=== PATIENT | male | born 1960 | race Caucasian/White ===

== ENCOUNTER 2017-03-27 06:05 | Day surgery (SDC) | payer MEDICAID ==
[2017-03-26 12:12] LABS: BASOPHILS 0.3 % (0-2); EOSINOPHILS 3.2 % (0-7); HEMATOCRIT 41.4 % (42.0-54.0); HEMOGLOBIN 14.4 g/dL (13.5-17.5); IMMATURE GRANULOCYTES 0.1 % (0-5); LYMPHOCYTES 23.1 % (15-50); MCH 30.1 pg (26.0-34.0); MCHC 34.8 g/dL (31.0-37.0); MCV 86.6 fL (80.0-100.0); MEAN PLATELET VOLUME 9.9 fL (7.4-10.4); NEUTROPHILS 66.3 % (40-80); PLATELET COUNT 206 10x3/uL (130-400); RBC 4.78 10x6/uL (4.20-6.10); RDW 13.6 % (11.5-14.5); WBC 7.5 10x3/uL (4.8-10.8)
[2017-03-26 12:22] LABS: CALCIUM 9.3 mg/dL (8.5-10.1); CARBON DIOXIDE 24.2 mmol/L (21.0-32.0); CREATININE - SERUM 1.5 mg/dL (0.6-1.3); POTASSIUM - SERUM 4.2 mmol/L (3.5-5.1)
[~2017-03-27] VITALS: Ht 182.9 cm; Wt 96.4 kg
[~2017-03-27 06:05] MED LIST: BETAPACE 80 MG80 MG PO; FUROSEMIDE20 MG PO; HYDROCODONE-APA1 TAB PO; KLOR-CON M2020 MEQ PO; OMEPRAZOLE20 M1 PO; ROXICODONE15 MG PO; ZYLOPRIM300 MG PO
[2017-03-27] MEDS ORDERED: ZANAFLEX4 MG PO (06:35)
[2017-03-27 06:43] VITALS: BP 131/75; BMI 28.8
--- NOTE | 2017-03-27 10:29 | NUR ---
DR LANDEROS NOTIFIED OF HYPERTENSION. REPEAT DOSE OF HYDRALAZINE GIVEN. MEDS FOR PAIN AND SHIVERING ALSO GIVEN. BP IS NOW ACCEPTABLE. WILL TRANSFER TO OUTPT DEPT.
--- NOTE | 2017-03-27 12:03 | NUR ---
C/O PAIN AND "CRAMPING" TO ABDOMEN AND RECTUM. MD AWARE, ORDER FOR LAND SURVEYING PARTY CHIEF. SPOKE WITH RAFA CONNOLLYHTML WEB DEVELOPER CONCERNING ORDER FOR LAND SURVEYING PARTY CHIEF AND NO PUMP/LEONARDO. WILL HAVE SET UP PER MED/ARABIC PROFESSOR. SPOKE WITH PHARMACY R/T LAND SURVEYING PARTY CHIEF. WILL CONTINUE TO MONITOR.
--- NOTE | 2017-03-27 12:16 | NUR ---
1215--PT UP TO VOID WITHOUT DIFFICULTY. HGRAVES RN
[2017-03-27 16:14] VITALS: BP 125/86
[2017-03-27 16:50] VITALS: BP 125/86; Ht 182.9 cm; Wt 96.4 kg
--- NOTE | 2017-03-27 19:30 | NUR ---
PATIENT RESTING IN BED AND DENIES NEEDS AT THIS TIME. BED IN LOWEST POSITION AND CALL LIGHT WITHIN REACH. ENCOURAGED THE PATIENT TO CALL IF HE HAS NEEDS.
[2017-03-27 20:00] VITALS: BP 146/71
[2017-03-28 04:00] VITALS: BP 130/72
--- NOTE | 2017-03-28 07:46 | NUR ---
AWAKE AND ALERT. ORIENTED X3. NO C/O PAIN AT THIS TIME. LUNGS ARE CLEAR BILATERALLY, NO COUGH NOTED. SKIN IS INTACT WHTOUT REDNESS. IV TO RIGHT FOREARM IS PATENT WITHOUT REDNESS AT INSERTION SITE. DENIES NEEDS.
[2017-03-28 08:18] VITALS: BP 170/77
--- NOTE | 2017-03-28 08:30 | NUR ---
DRESSING TO BUTTOCK CHANGED R/T SOILED. DENIES NEEDS.
--- NOTE | 2017-03-28 09:56 | NUR ---
CM met with patient at the request of Dr Domingo to assess discharge planning needs. Patient lives home alone independently but has many family and friends. Patient does not have and services set up at this time nor does he use any DME. Cathryn Angelo the patients friend will be driving him home today. Patient does not think that he will need home health at this time. I explained to him in great length about Akanksha Garibay CM for [employer] on how she will be following him and in the future and she can set anything that may need to be set up. Patient requested information on personal care and home care pamphlets given along with Akanksha Garibay card. CM will continue to follow and assist as needed.
--- NOTE | 2017-03-28 10:30 | NUR ---
DISCHARGED TO HOME WITH FAMILY AMBULATORY. DISCHARGE INSTRUCTIONS GIVEN BOTH VERBALLY AND WRITTEN. ALL QUESTIONS ANSWERED. PATIENT VERBALIZED UNDERSTANDING OF SAME. NO NEW PRESCRIPTIONS NEEDED. IV TO RIGHT FOREARM D/C WITH CATHETER INTACT.
[2017-03-30 19:08] LABS: HIV-1 RNA BY PCR <20 (())
== END 2017-03-28 10:34 | disposition home or self-care (01) ==
LOC: D.OPS 06:05 → D.MS 06:05 → D.OPS 08:00 → D.PAN 08:00 → D.MS 15:18 → D.OPS 03-28 10:34
PROVIDERS: Anesthesiology; Internal Medicine Hematology & Oncology; Surgery
DX: C20 Malignant neoplasm of rectum (principal); D12.0 Benign neoplasm of cecum; K63.5 Polyp of colon; I48.91 Unspecified atrial fibrillation; M47.892 Other spondylosis, cervical region; M10.9 Gout, unspecified; I50.9 Heart failure, unspecified; K21.9 Gastro-esophageal reflux disease without esophagitis; Z87.891 Personal history of nicotine dependence; Z79.891 Long term (current) use of opiate analgesic; Z79.899 Other long term (current) drug therapy

== ENCOUNTER 2017-04-22 05:09 | Day surgery (SDC) | payer MEDICAID ==
[2017-04-19 16:00] LABS: BASOPHILS 0.2 % (0-2); EOSINOPHILS 3.8 % (0-7); HEMATOCRIT 34.1 % (42.0-54.0); LYMPHOCYTES 26.2 % (15-50); MCH 30.1 pg (26.0-34.0); MCHC 35.2 g/dL (31.0-37.0); MCV 85.5 fL (80.0-100.0); MEAN PLATELET VOLUME 10.3 fL (7.4-10.4); MONOCYTES 9.6 % (2-11); NEUTROPHILS 60.2 % (40-80); PLATELET COUNT 172 10x3/uL (130-400); RBC 3.99 10x6/uL (4.20-6.10); RDW 13.6 % (11.5-14.5); WBC 5.8 10x3/uL (4.8-10.8)
[2017-04-19 16:13] LABS: ANION GAP 13.2 mmol/L (8-16); CALCIUM 8.1 mg/dL (8.5-10.1); CARBON DIOXIDE 27.1 mmol/L (21.0-32.0); CREATININE - SERUM 1.9 mg/dL (0.6-1.3); POTASSIUM - SERUM 4.3 mmol/L (3.5-5.1)
[2017-04-19 16:14] LABS: INR 1.02 (0.85-1.17); PROTIME 13.3 SECONDS (11.6-15.0)
[2017-04-19 16:15] LABS: APTT 29.9 SECONDS (22.8-39.4)
[~2017-04-22] VITALS: Ht 182.9 cm; Wt 89.4 kg
[~2017-04-22 05:09] MED LIST changes: +OXYCODONE HCL10 MG PO; +OXYCONTIN30 MG PO; -ROXICODONE15 MG PO; +ZANAFLEX4 MG PO
[2017-04-22 06:48] VITALS: BP 146/71; Ht 182.9 cm; Wt 89.4 kg
--- NOTE | 2017-04-22 09:41 | NUR ---
CONSULTED ANESTHESIA REGARDING ELEVATED BLOOD PRESSURE. GIVEN ORDERS TO GIVE HYDRALAZINE 5M EVERY FIVE UP TO 20MG PER VERBAL ORDER DR CARTER. WILL CONTINUE TO MONITOR.
--- NOTE | 2017-04-22 11:04 | NUR ---
1100 DR. LUZ ROUNDS ON THIS PT.
--- NOTE | 2017-04-22 14:59 | NUR ---
114 DC INSTS REVIEWED, PT TO GO TO DR. RAMOS' OFFICE FOR CHEMO. PORT REMAINS ACCESSED FROM OR. DRESSING CDI. RELEASED IN WC.
--- NOTE | 2017-04-23 09:38 | OP ---
PATIENT NAME: CHERELLE MENDEZ MEDICAL RECORD: [id number] :58 LOCATION:D.[facility] ADMISSION DATE: SURGEON: CHERELLE LUZ MD DATE OF OPERATION: 04/22/2017 SURGEON: Cherelle Luz MD. PREOPERATIVE DIAGNOSIS: Rectal cancer. POSTOPERATIVE DIAGNOSIS: Rectal cancer. PROCEDURE PERFORMED: 1. Insertion of left subclavian tunneled PowerPort. 2. Immediate interpretation of fluoroscopy. ANESTHESIA: General. COMPLICATIONS: None. SPECIMENS: None. Case was clean. ESTIMATED BLOOD LOSS: 5 cc. OPERATIVE COURSE: After consent was obtained, the patient was taken to the operating room and placed in the supine position on the operating table. Next, general anesthesia was given via endotracheal intubation after a timeout was performed that confirmed the correct patient and procedure. The left chest was then prepped and draped in typical sterile fashion. A 30 cc of local anesthetic were injected in the left chest wall. The left subclavian vein was cannulated on the first pass. Under fluoroscopy, the guidewire was advanced to the needle and advanced to the atriocaval junction. The needle was removed. The dilator and breakaway sheath were then passed over the wire under fluoroscopic guidance. Next, a skin incision was made with a 15-blade scalpel. Dissection continued to the level of the pectoralis fascia. A subcutaneous pocket was created along the pectoralis fascia. The tunneling device was then used to tunnel the catheter from the skin incision site to the needle stick site. The wire and dilator were removed and under fluoroscopy, the catheter was advanced to the breakaway sheath to the atriocaval junction and the breakaway sheath was removed. The catheter was then secured to the port and the port was sutured to the pectoralis fascia using interrupted 2-0 Prolene suture. The port was accessed, blood was aspirated, it was then flushed with 5000 units of heparin and 30 cc of saline. The pocket was irrigated and suctioned. The subcutaneous tissue was closed with 3-0 Vicryl suture. The skin was closed with 4-0 Monocryl, Mastisol and Steri-Strips. It was then covered. The port was then accessed, again blood was aspirated. It was flushed with normal saline. Telfa and sterile Tegaderm dressings were placed over the port in the incision. At the end of the case, all needle and instrument counts were correct. No complications occurred. The patient was extubated and transferred to the PACU in stable condition. TRANSINT:[id number] Voice Confirmation ID: [id number] DOCUMENT ID: [id number] OPERATIVE REPORT [id number] CHERELLE MENDEZ JAMES J MD at 0938 CC: [id number] DICTATION DATE: 04/22/17929 COURT SECURITY OFFICER: 04/22/17 1353 [facility] 04/22/[address] [address]
== END 2017-04-22 11:42 | disposition home or self-care (01) ==
LOC: D.OPS 05:09 → D.PAN 07:30 → D.OPS 07:30 → D.PAN 08:30 → D.OPS 11:42
PROVIDERS: Anesthesiology
DX: C20 Malignant neoplasm of rectum (principal); Z01.812 Encounter for preprocedural laboratory examination

== ENCOUNTER 2017-06-01 11:23 | Inpatient (IN) | payer MEDICAID ==
[~2017-06-01] VITALS: Ht 182.9 cm; Wt 85.5 kg
--- NOTE | ~2017-06-01 | CN ---
PATIENT NAME:CHERELLE MENDEZ MEDICAL RECORD: [id number] : 58 LOCATION:[facility] ADMIT DATE: 06/01/17 ACCOUNT: [id number] CONSULTING PHYSICIAN: MARIO YOUNGBLOOD MD REFERRING PHYSICIAN: JAMEY SOLO DO DATE OF CONSULTATION: 06/01/2017 CONSULTATION NOTE ADDENDUM CHIEF COMPLAINT: Miserable. HISTORY OF PRESENT ILLNESS: The patient was admitted with an ileus or a small-bowel obstruction. I favor probable ileus. His surgeon is Dr. EVELIN Domingo. The patient has rectal cancer. He is undergoing radiation therapy for this and he has some burned areas involving the lower abdomen and perirectal area as well as the size. He has had some ointment he has been using at home. We will have that ointment here with this; however, he has used some Emla cream in the past and we will order that for him. Additionally, he is on Chloraseptic spray. I have adjusted the nasogastric tube tamer as it was up in the left nostril. He appears more comfortable now that these adjustments have been made. It is very likely that he is having a medication reaction to a medicine that is used for narcotic-induced constipation. Symptoms are improved. The patient frankly is fairly miserable. He is tender in the lower abdomen, but this is from the radiation casey. Symptoms are of moderate intensity. Palpation aggravates. Nothing alleviates. This is a consultation note addendum. For the typed portion of the consultation note, please see the chart. This will include the past medical and surgical history, current medications, allergies, family history as well as social history. REVIEW OF SYSTEMS: Positive for nausea, positive for abdominal pain, positive for rash/burn. Review of systems is negative other than as is described above. PHYSICAL EXAMINATION: GENERAL: The patient appears acutely ill. Also appears chronically ill. VITAL SIGNS: Reviewed. EARS: External ears appear normal. EYES: Extraocular movements are intact. NECK: Trachea is midline. CHEST: No intercostal retractions. PULMONARY: Nonlabored, no stridor. ABDOMEN: Tender as described above. INTEGUMENT: Burn/rash as described above. PSYCHIATRIC: Anxious affect. NEUROLOGIC: Answers questions appropriately, moves all extremities well. BACK: No thoracic kyphosis. LYMPHATIC: No lymphangitic streaking of the exposed extremities. IMPRESSION: Probable ileus. PLAN: Nasogastric tube suction. We will remove the nasogastric tube when he has return of bowel function. I will review his CT images. CONSULT REPORT [id number] CHERELLE MENDEZ TRANSINT:[id number] Voice Confirmation ID: [id number] DOCUMENT ID: [id number] MARIO YOUNGBLOOD MD CC: [id number] DICTATION DATE: 06/01/171819 EMERGENCY PREPAREDNESS MANAGER: 06/01/171952 ADM IN [place] [id number] [place] [id number]
--- NOTE | ~2017-06-01 | HP ---
PATIENT: CHERELLE BRANCH MEDICAL RECORD: [id number] ACCOUNT: [id number] LOCATION:[facility] : 58 ADMISSION DATE: 06/01/17 HISTORY AND PHYSICAL EXAMINATION HISTORY OF PRESENT ILLNESS: Mr. Branch is a 56-year-old white male with known rectal cancer followed by Dr. Cohen, Dr. Dailey and Dr. Domingo, who presents with sudden onset of abdominal pain, nausea and vomiting earlier today. He took his last chemo treatment yesterday, has still a little bit of radiation left, saw Dr. Dailey yesterday, who gave him Movantik due to some opioid-induced constipation. PAST MEDICAL HISTORY: Significant for known rectal cancer, congestive heart failure, atrial fibrillation, edema, GERD. PAST SURGICAL HISTORY: Previous surgeries include tonsillectomy, adenoidectomy and neck surgery. ALLERGIES: None known. HOME MEDICATIONS: Include sotalol 80 mg a day, oxycodone q. 12 immediate release, potassium 20 mEq daily, omeprazole 20 mg a day, Zyloprim 300 mg a day. FAMILY HISTORY: Noncontributory. SOCIAL HISTORY: The patient was a smoker and a drinker, but has quit both within the last few years. REVIEW OF SYSTEMS: He complains of abdominal pain, which is severe nausea and vomiting, has had loose stools for most of the day. No visible blood. No chest pain. No shortness of breath. PHYSICAL EXAMINATION: HEENT: Head is normocephalic, sclerae nonicteric, NG tube in place. NECK: Soft and supple. HEART: Regular. LUNGS: Clear. ABDOMEN: Soft. Diminished bowel sounds. No edema. IMPRESSION: 1. Small bowel versus ileus. 2. Rectal cancer. 3. History of atrial fibrillation, currently in sinus. PLAN: Admit, NG tube, bowel rest, IV fluids. See orders for plan. We will also consult Dr. Cohen and consult general surgery. TRANSINT:[id number] Voice Confirmation ID: [id number] DOCUMENT ID: [id number] HISTORY AND PHYSICAL [id number] CHERELLE BRANCH [place] CC: [id number] DICTATION DATE: 06/01/17 1721 MEDICAL GRADE SHOEMAKER: 06/01/17 1831 ADM IN [place] [id number] [place] [address]
[2017-06-01 12:28] LABS: BASOPHILS 0.3 % (0-2); EOSINOPHILS 3.2 % (0-7); HEMATOCRIT 27.2 % (42.0-54.0); HEMOGLOBIN 9.9 g/dL (13.5-17.5); IMMATURE GRANULOCYTES 0.3 % (0-5); MCH 31.5 pg (26.0-34.0); MCHC 36.4 g/dL (31.0-37.0); MCV 86.6 fL (80.0-100.0); MEAN PLATELET VOLUME 9.5 fL (7.4-10.4); MONOCYTES 5.1 % (2-11); NEUTROPHILS 85.1 % (40-80); RBC 3.14 10x6/uL (4.20-6.10); RDW 16.6 % (11.5-14.5); WBC 3.2 10x3/uL (4.8-10.8)
[2017-06-01 12:29] LABS: PLATELET COUNT 124 10x3/uL (130-400)
[2017-06-01 12:37] LABS: APPEARANCE CLEAR (CLEAR); COLOR YELLOW (YELLOW); LEUKOCYTE ESTERASE TRACE (NEGATIVE); NITRITE NEGATIVE (NEGATIVE); PROTEIN TRACE mg/dL (NEGATIVE); SPECIFIC GRAVITY 1.005 (1.005-1.020)
[2017-06-01 12:38] LABS: BILIRUBIN NEGATIVE (NEGATIVE); GLUCOSE NEGATIVE (NEGATIVE); KETONE NEGATIVE (NEGATIVE); UROBILINOGEN NORMAL (NORMAL)
[2017-06-01 12:41] LABS: EPITHELIAL CELLS 0-5 /hpf (0-5); RED CELLS - URINE 0-5 /hpf (0-5); WHITE CELLS - URINE 0-5 /hpf (0-5)
[2017-06-01 12:42] LABS: BACTERIA NONE SEEN /hpf (NONE SEEN)
[2017-06-01 12:43] LABS: ALBUMIN 3.2 g/dL (3.4-5.0); ALKALINE PHOSPHATASE 116 U/L (46-116); ALT (SGPT) 29 U/L (10-68); BILIRUBIN - TOTAL 1.08 mg/dL (0.2-1.3); CALC OSMOLALITY 276 mosm/kg (275-300); CALCIUM 8.6 mg/dL (8.5-10.1); CARBON DIOXIDE 24.1 mmol/L (21.0-32.0); CHLORIDE - SERUM 104 mmol/L (98-107); CREATININE - SERUM 1.1 mg/dL (0.6-1.3); GLUCOSE 125 mg/dL (74-106); POTASSIUM - SERUM 3.7 mmol/L (3.5-5.1); PROTEIN - SERUM 6.7 g/dL (6.4-8.2); SODIUM 137 mmol/L (136-145); UREA NITROGEN 19 mg/dL (7-18); eGFR NON AFRICAN AMERICAN 73 mL/min (90-120)
[2017-06-01 12:43] LABS: SPERMATOZOA PRESENT /hpf (NONE SEEN)
[2017-06-01 12:53] LABS: CHOL - HDL RATIO 5.7 ratio (2.3-4.9); CHOLESTEROL, TOTAL 215 mg/dL (0-200); CKMB 0.1 U/L (0.0-3.6); CREATINE KINASE 37 UL (21-232); HDL CHOLESTEROL 38 mg/dL (32-96); LDL CHOLESTEROL 142 mg/dL (0-100); LDL-HDL RATIO 3.7 ratio (1.5-3.5); TRIGLYCERIDE 178 mg/dL (30-200)
[2017-06-01 12:56] LABS: TROPONIN-I < 0.017 ng/mL (0.000-0.060)
[2017-06-01 13:14] LABS: AMYLASE - SERUM 78 U/L (25-115); LIPASE 77 U/L (73-393)
[2017-06-01 16:51] VITALS: BP 180/88
[2017-06-01] MEDS ORDERED: FLOMAX0.4 MG PO (17:51)
[2017-06-01] MEDS ORDERED: PHENERGAN25 M1 PO (17:52)
[2017-06-01] MEDS ORDERED: EMLA CREAM 30 G30 G1 TOPICAL (17:53)
[2017-06-01] MEDS ORDERED: ZOFRAN4 MG PO (17:53)
[2017-06-01] MEDS ORDERED: [UNRECOGNIZED DRUG - OTHER] (18:06)
[2017-06-01 18:41] VITALS: Ht 182.9 cm; Wt 85.5 kg
--- NOTE | 2017-06-01 18:51 | NUR ---
PATIENT IN BED WITH IV INTACT. NO COMPLAINTS OR SIGNS OF DISTRESS AT THIS TIME. NGT LIWS. CALL LIGHT WITHIN REACH.
[2017-06-01 19:23] VITALS: BP 181/87
[2017-06-02] VITALS: BP 160/80
--- NOTE | 2017-06-02 02:55 | NUR ---
PT SLEEPING. RESP EASY, UNLABORED. NO DISTRESS NOTED. CONTINUE MODERN DANCER'S PLAN OF CARE.
[2017-06-02 04:00] VITALS: BP 171/78
[2017-06-02 07:01] LABS: HEMATOCRIT 23.9 % (42.0-54.0); HEMOGLOBIN 8.4 g/dL (13.5-17.5); MCH 30.9 pg (26.0-34.0); MCHC 35.1 g/dL (31.0-37.0); MCV 87.9 fL (80.0-100.0); MEAN PLATELET VOLUME 9.1 fL (7.4-10.4); RBC 2.72 10x6/uL (4.20-6.10); RDW 16.5 % (11.5-14.5)
[2017-06-02 07:03] LABS: ALBUMIN 2.8 g/dL (3.4-5.0); ALKALINE PHOSPHATASE 104 U/L (46-116); ALT (SGPT) 22 U/L (10-68); CALC OSMOLALITY 275 mosm/kg (275-300); CARBON DIOXIDE 27.7 mmol/L (21.0-32.0); CHLORIDE - SERUM 106 mmol/L (98-107); GLUCOSE 92 mg/dL (74-106); MAGNESIUM - SERUM 1.2 mg/dL (1.8-2.4); PLATELET COUNT 91 10x3/uL (130-400); POTASSIUM - SERUM 3.3 mmol/L (3.5-5.1); PROTEIN - SERUM 6.2 g/dL (6.4-8.2); SODIUM 138 mmol/L (136-145); UREA NITROGEN 12 mg/dL (7-18); WBC 1.8 10x3/uL (4.8-10.8); eGFR NON AFRICAN AMERICAN 82 mL/min (90-120)
[2017-06-02 07:28] LABS: EOSINOPHILS 5 % (0-7); LYMPHOCYTES 13 % (15-50); MONOCYTES 8 % (2-11); NEUTROPHILS 72 % (40-80); PLATELET ESTIMATE DECREASED
--- NOTE | 2017-06-02 07:50 | NUR ---
A&O, DENIES NEEDS, BED LOWEST POSITION, CALL LIGHT IN REACH, WILL CONTINUE TO MONITOR
[2017-06-02 10:11] VITALS: BP 195/97
[2017-06-02 12:43] VITALS: BP 186/92
--- NOTE | 2017-06-02 14:30 | NUR ---
NGT CLAMPED, CLEAR LIQUIDS GIVEN, TOLERATING WELL, WILL CONTINUE TO MONITOR
--- NOTE | 2017-06-02 19:25 | NUR ---
RECIEVED SHIFT REPORT. PT IS LYING IN BED. ALERT AND ORIENTED AND ABLE TO VERBALIZE NEEDS. IV IS PATENT AND FLUIDS ARE RUNNING PER ORDER. NGT TO LEFT NARE PATENT AND CLAMPED AT THIS TIME. PT IS AMBULATORY BUT WAS INSTRUCTED TO CALL FOR ANY ASSISTANCE NEEDED. PT STATES PAIN IS 6/10 WITH FLOOR WORKER TRANSFER BAY PUMP. NO NEEDS ARE VERBALIZED AT THIS TIME. WILL CONTINUE TO MONITOR. SIDE RAILS ARE UP X 2. BED IS IN LOWEST POSITION. CALL LIGHT IS WITHIN REACH.
[2017-06-02 20:00] VITALS: BP 146/47
--- NOTE | 2017-06-02 21:30 | NUR ---
SHIFT ASSESSMENT COMPLETED. NGT PULLED BY DR YOUNGBLOOD AT THIS TIME. NO NEEDS ARE VOICED. WILL MONITOR. SIDE RAILS X 2. BED LOW. CALL LIGHT IN REACH.
[2017-06-03] VITALS: BP 144/71
[2017-06-03 04:00] VITALS: BP 152/60
[2017-06-03 06:07] LABS: CALC OSMOLALITY 276 mosm/kg (275-300); CALCIUM 7.7 mg/dL (8.5-10.1); CARBON DIOXIDE 24.8 mmol/L (21.0-32.0); CHLORIDE - SERUM 106 mmol/L (98-107); CREATININE - SERUM 0.9 mg/dL (0.6-1.3); GLUCOSE 85 mg/dL (74-106); POTASSIUM - SERUM 3.2 mmol/L (3.5-5.1); SODIUM 140 mmol/L (136-145); UREA NITROGEN 9 mg/dL (7-18); eGFR NON AFRICAN AMERICAN > 90 mL/min (90-120)
--- NOTE | 2017-06-03 07:02 | NUR ---
REPORT RECIEVED, ASSUMED CARE OF PT. WATCHING TV, NO COMPLAINTS AT THIS TIME. BED IN LOWEST POSITION, SIDE RAILS UP X 2, CALL LIGHT WITHIN REACH.
[2017-06-03 08:43] VITALS: BP 165/74
[2017-06-03 09:11] LABS: BASOPHILS 0.2 % (0-2); EOSINOPHILS 3.4 % (0-7); HEMOGLOBIN 8.2 g/dL (13.5-17.5); IMMATURE GRANULOCYTES 1.1 % (0-5); LYMPHOCYTES 5.1 % (15-50); MCH 31.5 pg (26.0-34.0); MCHC 35.7 g/dL (31.0-37.0); MCV 88.5 fL (80.0-100.0); MEAN PLATELET VOLUME 9.7 fL (7.4-10.4); MONOCYTES 4.7 % (2-11); NEUTROPHILS 85.5 % (40-80); PLATELET COUNT 101 10x3/uL (130-400); RDW 16.8 % (11.5-14.5)
[2017-06-03 09:12] LABS: WBC 4.7 10x3/uL (4.8-10.8)
[2017-06-03 09:21] LABS: ALBUMIN 2.7 g/dL (3.4-5.0); ALKALINE PHOSPHATASE 89 U/L (46-116); ALT (SGPT) 20 U/L (10-68); CALC OSMOLALITY 278 mosm/kg (275-300); CALCIUM 8.1 mg/dL (8.5-10.1); CARBON DIOXIDE 23.9 mmol/L (21.0-32.0); CHLORIDE - SERUM 107 mmol/L (98-107); CREATININE - SERUM 0.9 mg/dL (0.6-1.3); GLUCOSE 86 mg/dL (74-106); POTASSIUM - SERUM 3.3 mmol/L (3.5-5.1); PROTEIN - SERUM 5.7 g/dL (6.4-8.2); SODIUM 141 mmol/L (136-145); UREA NITROGEN 9 mg/dL (7-18); eGFR NON AFRICAN AMERICAN > 90 mL/min (90-120)
[2017-06-03] MEDS ORDERED: MIRALAX17 GM PO (12:04)
--- NOTE | 2017-06-03 13:20 | NUR ---
PT DISCHARGE INSTRUCTIONS GIVEN, SIGNED AND PT VERBALIZED UNDERSTANDING.
--- NOTE | 2017-06-03 13:41 | NUR ---
PT TELEMETRY D/C'D. L CHEST PORT FLUSHED WITH NS FLUSH AND HEPARIN FLUSH ORDERED. PEDRO PABLOG APPLIED.
--- NOTE | 2017-06-03 14:32 | NUR ---
PT LEFT FLOOR WITH HOSPITAL STAFF VIA WHEELCHAIR, PERSONAL BELONGINGS WITH PT.
== END 2017-06-03 14:38 | disposition home or self-care (01) | DRG 389 ==
LOC: D.ER 11:23 → D.MS 14:22
PROVIDERS: Emergency Medicine; Internal Medicine Hematology & Oncology; Nurse Practitioner Family; ADMIT Family Medicine
PROC: 0D9670Z Drainage of Stomach with Drainage Device, Via Natural or Artificial Opening (ICD-10-PCS; principal; 2017-06-01)
DX: K56.60 Unspecified intestinal obstruction (principal); C20 Malignant neoplasm of rectum; I48.91 Unspecified atrial fibrillation; M10.9 Gout, unspecified; K29.70 Gastritis, unspecified, without bleeding; D70.9 Neutropenia, unspecified

== ENCOUNTER 2017-06-10 13:20 | Outpatient (CLI) | payer MEDICAID ==
[~2017-06-10 13:20] MED LIST changes: +EMLA CREAM 30 G30 G1 TOPICAL; +FLOMAX0.4 MG PO; +MIRALAX17 GM PO; +PHENERGAN25 M1 PO; +ZOFRAN4 MG PO; +[UNRECOGNIZED DRUG - OTHER]
--- NOTE | 2017-06-10 17:05 | NUR ---
2ND UNIT PRBC'S BEGUN. PT TOLERATED FIRST UNIT WELL.
--- NOTE | 2017-06-10 18:10 | NUR ---
PATIENT LYING IN BED, AWAKE, ALERT, DENIES COMPLAINTS, RESPIRATIONS EVEN AND UNLABORED, DENIES ANY UNTOWARD SYMPTOMS. PRBC'S UNIT #2 TRANSFUSING TO LEFT CHEST INFUSAPORT WITHOUT DIFFICULTY
--- NOTE | 2017-06-10 18:48 | NUR ---
UNIT #2 PRBC'S FINISHED INFUSING, BAG EMPTY, PATIENT WITH NO CHANGES, DENIES ANY COMPLAINTS. LYING IN BED. PATIENT AWARE OF NEED TO STAY IN ROOM FOR ONE HOUR POST TRANSFUSION TO MONITOR FOR SIGNS OR SYMPTOMS OF REACTION
== END 2017-06-10 19:50 | disposition home or self-care (01) ==
LOC: D.OPS 13:20
DX: C21.1 Malignant neoplasm of anal canal (principal); D64.81 Anemia due to antineoplastic chemotherapy

== ENCOUNTER 2017-12-25 08:10 | Day surgery (SDC) | payer MEDICAID ==
[2017-12-24 12:16] LABS: HEMATOCRIT 33.4 % (42.0-54.0); HEMOGLOBIN 11.5 g/dL (13.5-17.5); MCH 31.7 pg (26.0-34.0); MCHC 34.4 g/dL (31.0-37.0); RBC 3.63 10x6/uL (4.20-6.10); RDW 14.5 % (11.5-14.5); WBC 5.3 10x3/uL (4.8-10.8)
[2017-12-24 12:21] LABS: CALCIUM 8.9 mg/dL (8.5-10.1); CARBON DIOXIDE 25.3 mmol/L (21.0-32.0); CREATININE - SERUM 1.4 mg/dL (0.6-1.3); POTASSIUM - SERUM 5.3 mmol/L (3.5-5.1)
[~2017-12-25] VITALS: Ht 182.9 cm; Wt 77.6 kg
--- NOTE | ~2017-12-25 | OP ---
PATIENT NAME: CHERELLE MENDEZ MEDICAL RECORD: [id number] :58 LOCATION:D.[facility] ADMISSION DATE: SURGEON: CHERELLE LUZ MD DATE OF OPERATION: 12/25/2017 SURGEON: Cherelle Luz MD PREOPERATIVE DIAGNOSIS: Rectal ulcer. POSTOPERATIVE DIAGNOSIS: Rectal cancer. PROCEDURES PERFORMED: 1. Rectal examination under anesthesia. 2. Rectal incisional biopsy. ANESTHESIA: General. COMPLICATIONS: None. SPECIMENS: Rectal biopsy. WOUND CLASS: Clean contaminated. OPERATIVE COURSE: After consent was obtained, the patient was taken to the operating room and placed in supine position on the operating table. Next, general anesthesia was given via endotracheal intubation. After a timeout was performed to confirm the correct patient and procedure, the rectum was prepped and draped in typical sterile fashion. Digital rectal exam was performed, a large ulcerated mass on the right cheek extending into the rectum was approximately 6 x 5 cm. The rectum was serially dilated using the Santos-Hill retractors. Multiple incisional biopsies were taken along the rectal mass. Frozen sections were completed, which revealed squamous cell carcinoma. At this time, the rectum was packed with Americaine and Gelfoam. Then 30 cc of local anesthetic were injected for a perineal block. At the end of the case, all needle and instrument counts were correct. No complications occurred. The patient returned to the recovery room in satisfactory condition. TRANSINT:[id number] Voice Confirmation ID: [id number] DOCUMENT ID: [id number] CHERELLE LUZ MD at 0808 CC: [id number] DICTATION DATE: 01/06/18 1415 NET UI DEVELOPER: 01/06/18 1431 [facility] 12/25/[address] [address]
[~2017-12-25 08:10] MED LIST changes: +BACTRIM DS TABL1 TAB PO; +FLAGYL500 MG PO; +LIDOCAINE 5 % O35 GM TOPICAL; +PROTONIX40 MG PO
[2017-12-25 09:01] VITALS: BP 136/89; Ht 182.9 cm; Wt 77.6 kg
[2018-01-24] MEDS ORDERED: FLAGYL500 MG PO (13:02)
== END 2017-12-25 13:20 | disposition home or self-care (01) ==
LOC: D.OPS 08:10 → D.PAN 09:50 → D.OPS 11:15 → D.PAN 11:15 → D.OPS 13:20
PROVIDERS: Anesthesiology
DX: C21.0 Malignant neoplasm of anus, unspecified (principal); F17.200 Nicotine dependence, unspecified, uncomplicated; I48.91 Unspecified atrial fibrillation; K21.9 Gastro-esophageal reflux disease without esophagitis; Z01.812 Encounter for preprocedural laboratory examination

== ENCOUNTER 2018-01-27 09:15 | Inpatient (IN) | payer MEDICAID ==
[~2018-01-27] VITALS: Ht 182.9 cm; Wt 73.0 kg
--- NOTE | ~2018-01-27 | OP ---
PATIENT NAME: CHERELLE MENDEZ MEDICAL RECORD: [id number] :58 LOCATION:[facility] ADMISSION DATE:01/27/18 SURGEON: CHERELLE LUZ MD DATE OF OPERATION: 01/27/2018 PREOPERATIVE DIAGNOSIS: Recurrent anal cancer. POSTOPERATIVE DIAGNOSIS: Recurrent anal cancer. PROCEDURE PERFORMED: Abdominoperineal resection with end colostomy. SURGEON: Adilson Martinez MD CO-SURGEON: Cherelle (HIRO Luz MD ANESTHESIA: General. COMPLICATIONS: None. SPECIMENS: 1. Rectum and anus. 2. Appendix. 3. Additional lateral margin. ESTIMATED BLOOD LOSS: 150 cc. WOUND CLASS: Grossly contaminated. Operation required co-surgeon due to complexity of operation. Dr. Martinez performed the proctectomy portion of the operation while I performed the abdominal portion of the operation. OPERATIVE COURSE: After consent was obtained, the patient was taken to the operating room and placed in the supine position on the operating table. Next, general anesthesia was given via endotracheal intubation. After time-out was performed to confirm the correct patient and procedure, abdomen was prepped and draped in typical sterile fashion. An Ioban dressing was placed. An incision was made from the umbilicus to the pubic tubercle along the midline using a #10 blade scalpel. Dissection was continued with electrocautery to the external oblique fascia. The external oblique fascia was opened with electrocautery. The peritoneum was opened with electrocautery. The remaining portion of the incision was then opened under direct vision using electrocautery. An Jorge retractor was placed. The small bowel was swept at the left upper quadrant. A self-retaining retractor was placed into the abdominal cavity. The sigmoid colon was mobilized off the lateral sidewall using the Harmonic scalpel. The white line of Toldt was taken along the descending colon. Next, the colorectal junction was identified. A mesenteric window was created. The colorectal junction was then transected using the DANNI linear cutting stapler. The mesenteric vessels were identified and taken with the Harmonic scalpel. The sigmoid colon and descending colon were mobilized and placed into the left lateral sidewall. The rectum was then dissected. The hemorrhoidal vessels again were taken at the base and the dissection was continued in the OPERATIVE REPORT [id number] CHERELLE MENDEZ presacral fascia. Both left and right ureters were identified. At this point, vessel loops were placed upon both ureters. Methylene blue was given. The peritoneal reflection was opened anteriorly and dissection was completed with combination of blunt dissection with electrocautery and Harmonic scalpel dissection. At this time, Dr. Martinez performed the proctectomy portion of the operation. To see full details of the proctectomy portion of the procedure, please see Dr. Martinez's operative note. I assisted with the proctectomy from above. Again, remaining tissue specimens were taken from above with Harmonic scalpel dissection. The rectum was carefully dissected off the prostate. The ureters, bladder, and prostate were left intact. Once the specimen was completely excised, removed, and sent for permanent pathology, at this time I performed an appendectomy using 2 firings of the DANNI stapler. The pelvis was then copiously irrigated with hydrogen peroxide. I created an omental flap from the transverse colon. The flap was then placed into the pelvis. Multiple layers of Seprafilm were placed as well into the pelvis. At this time, a colostomy was created in the left lateral quadrant. A circular skin incision was made with the Harmonic scalpel. Subcutaneous tissue was dissected with Harmonic scalpel. A cruciate incision was made in the anterior fascia. The muscles were gently split. The peritoneum was then incised with electrocautery. A [place] was placed through the incision. The staple line of the descending colon was grasped and was delivered through the incision. The abdomen was then copiously irrigated and suctioned. During this time, Dr. Martinez was performing primary closure of the perineal incision. At this time, all remaining instruments were removed from the abdominal cavity. It was copiously irrigated and suctioned. The fascial incision was closed with #1 looped PDS. Skin was closed with paul. The colostomy was then fashioned in standard Felipa fashion in the left lower quadrant. At the end of the case, all needle and instrument counts were correct. No complications occurred. The patient was extubated and transferred to the PACU in stable condition. TRANSINT:[id number] Voice Confirmation ID: [id number] DOCUMENT ID: [id number] CHERELLE LUZ MD at 2243 CC: [id number] DICTATION DATE: 01/27/18 5092 SOAKERS SUPERVISOR: 01/27/18 1701 ADM IN [facility] [address] [place] [id number]
--- NOTE | ~2018-01-27 | OP ---
PATIENT NAME: CHERELLE MENDEZ MEDICAL RECORD: [id number] LOCATION:[id number] ADMISSION DATE:01/27/18 SURGEON: MARIO YOUNGBLOOD MD DATE OF OPERATION: 01/27/2018 PREOPERATIVE DIAGNOSIS: Extensive anal cancer which extends up into the rectum. POSTOPERATIVE DIAGNOSIS: Extensive anal cancer, which extends up into the rectum. PROCEDURE: Abdominoperineal resection, incidental appendectomy. SURGEON: Mario Youngblood MD/Cherelle Domingo MD. This is a cosurgeon case. BLOOD LOSS: 150 cc. ANESTHESIA: General. COMPLICATIONS: None. The patient has a huge anal cavity. I can detect no definite anus during the operation. All the anal sphincteric structures had been completely destroyed by the malignancy. The malignancy was so large that it extended up into the rectum and then into the right pelvic side wall and into the periurethral tissues on the right. I excised all of the cancerous tissue that I could identify. Due to distortion of tissues and friability of the malignancy, it was really difficult to get a margin, so we did not attempt to get margins. I am certain that the right pelvic sidewall would have a positive margin as I had to pretty much clear the right pelvic sidewall of any tissue in order to better assure that there would not be a recurrence of the malignancy. I a.m. still very, very concerned that there may be a malignancy present in the right pelvic sidewall and we will see if Dr. Zarate can radiate that area further. I think the patient is likely going to require additional chemotherapy. Due to the complexity in this operation, it was necessary to have 2 attending and operative surgeons. I did most of the work below and Dr. Domingo did most of the work above. The ulcerated area where the anus should have been measured 10.2 cm in the anterior and posterior dimensions and 6 cm in the lateral dimensions. The excised perineal defect measured 16.2 cm in the anterior and posterior dimension and extended from the nasal cleft all the way up into the right side of the scrotum. The lateral length of the excised defect was 10.5 cm. The risks, possible complications, and alternatives to procedure were explained to the patient and his family. They elected to proceed. I saw him in the outpatient department. OPERATIVE COURSE: The patient was conveyed to the operating room electively on 01/27/2018. General anesthesia was induced by the anesthesia staff. A lower midline incision was accomplished. The peritoneal cavity was entered sharply. Retractors were placed including the Jorge retractor. We divided the upper rectum with a DANNI-75 stapler. We then dissected out both ureters. These were retracted for protection with vessel loops during the operation and during the operation, there was no apparent injury to the bladder or the ureters. Intravenous methylene blue was given and no time during the operation that we OPERATIVE REPORT [id number] CHERELLE MENDEZ see any methylene blue spill out into the operative field. We dissected bluntly behind the rectum and between the rectum and the sacrum all the way to the coccyx. We dissected anteriorly between the bladder and the rectum. We dissected laterally with the EnSeal device, dividing the rectal stalks. I then went below. I then excised the cancerous opening which had rolled borders. I dissected posteriorly to the tip of the coccyx. I then continued my dissection around laterally. I dissected anteriorly and this was a difficult dissection, because there was really not a clearcut plane between the prostate and the rectum. There was an ulcerative perforated area to the right, so therefore this is a dirty case due to this perforated malignancy. I was able to dissect the prostate off the rectum without any damage to the prostate gland. I removed some additional cancerous tissue to the right of the ureter without injuring the ureter. I could feel the Cobb catheter within the ureter. I then exteriorized the upper portion of the rectum. I took down the remaining rectal stalks with the EnSeal device. I then removed the operative specimen. Additional sidewall material was excised with the EnSeal device. I was a little concerned about margins at the skin level. For this reason, I reexcised and the 3 excisions were sent to pathology. I measured and the measurement of the excised perineal defect as listed above. Subcutaneous flaps were created sharply. Dr. Domingo created an omental flap which he laid down to the pelvis. He then closed the midline and this was dictated separately. Before closing the midline, the defect was accomplished in the left lower quadrant and he exteriorized the colon in preparation for a colostomy. I continued my operative procedure involving the perineum. A perineal defect was closed in layers. The upper pelvic fascia was closed with interrupted #1 Vicryls. There was another layer of interrupted #1 Vicryls, and a third layer of interrupted #1 Vicryl for the subdermis. The skin was approximated with multiple interrupted horizontal mattress #1 Vicryls. I then rescrubbed, regowned, and came and joined Dr. Domingo and assisted him with maturation of the colostomy. Sterile dressings were applied. The patient was then extubated and conveyed to the post-anesthesia care unit where he was in stable condition. TRANSINT:[id number] Voice Confirmation ID: [id number] DOCUMENT ID: [id number] MARIO YOUNGBLOOD MD at 1227 CC: VIOLA DENIS MD and YANDEL ZARATE [id number] DICTATION DATE: 01/27/182215 SUPERVISOR BEEHIVE KILN: 01/28/1817 [facility] [place] 01/30/18 [id number] [place] [address]
[2018-01-27 10:45] VITALS: BP 157/91; BMI 21.9
[2018-01-27 11:05] LABS: BASOPHILS 0.1 % (0-2); EOSINOPHILS 0.3 % (0-7); HEMATOCRIT 34.5 % (42.0-54.0); HEMOGLOBIN 12.2 g/dL (13.5-17.5); IMMATURE GRANULOCYTES 0.2 % (0-5); LYMPHOCYTES 3.9 % (15-50); MCH 31.9 pg (26.0-34.0); MCHC 35.4 g/dL (31.0-37.0); MCV 90.1 fL (80.0-100.0); MEAN PLATELET VOLUME 9.4 fL (7.4-10.4); NEUTROPHILS 89.5 % (40-80); RBC 3.83 10x6/uL (4.20-6.10); RDW 14.2 % (11.5-14.5); WBC 9.1 10x3/uL (4.8-10.8)
[2018-01-27 11:10] LABS: PLATELET COUNT 191 10x3/uL (130-400)
[2018-01-27 11:17] LABS: APTT 29.4 SECONDS (22.8-39.4); INR 1.1 (0.85-1.17); PROTIME 13.8 SECONDS (11.6-15.0)
[2018-01-27 11:24] LABS: ANION GAP 17.7 mmol/L (8-16); CALCIUM 9.1 mg/dL (8.5-10.1); CARBON DIOXIDE 23.5 mmol/L (21.0-32.0); CREATININE - SERUM 1.6 mg/dL (0.6-1.3); POTASSIUM - SERUM 4.2 mmol/L (3.5-5.1)
[2018-01-27 16:58] VITALS: BP 108/54
[2018-01-27 20:16] VITALS: BP 108/54; BMI 21.9
[2018-01-28 01:02] VITALS: BP 129/69
[2018-01-28 04:22] VITALS: BP 127/73
[2018-01-28 07:00] VITALS: BP 146/68
[2018-01-28 07:10] LABS: BASOPHILS 0 % (0-2); EOSINOPHILS 0 % (0-7); HEMATOCRIT 30.9 % (42.0-54.0); HEMOGLOBIN 10.7 g/dL (13.5-17.5); IMMATURE GRANULOCYTES 0.2 % (0-5); LYMPHOCYTES 2.9 % (15-50); MCH 31.3 pg (26.0-34.0); MCHC 34.6 g/dL (31.0-37.0); MCV 90.4 fL (80.0-100.0); MEAN PLATELET VOLUME 9.7 fL (7.4-10.4); MONOCYTES 4.7 % (2-11); NEUTROPHILS 92.2 % (40-80); RBC 3.42 10x6/uL (4.20-6.10); RDW 14.4 % (11.5-14.5); WBC 9.5 10x3/uL (4.8-10.8)
[2018-01-28 07:18] LABS: PLATELET COUNT 139 10x3/uL (130-400)
[2018-01-28 07:36] LABS: ALBUMIN 2.3 g/dL (3.4-5.0); ALKALINE PHOSPHATASE 86 U/L (46-116); ALT (SGPT) 13 U/L (10-68); BILIRUBIN - TOTAL 0.44 mg/dL (0.2-1.3); CALCIUM 8.4 mg/dL (8.5-10.1); CHLORIDE - SERUM 101 mmol/L (98-107); GLUCOSE 110 mg/dL (74-106); POTASSIUM - SERUM 4.3 mmol/L (3.5-5.1); PROTEIN - SERUM 5.8 g/dL (6.4-8.2); SODIUM 136 mmol/L (136-145); eGFR NON AFRICAN AMERICAN 81 mL/min (90-120)
[2018-01-28 07:37] LABS: CALC OSMOLALITY 274 mosm/kg (275-300); UREA NITROGEN 18 mg/dL (7-18)
[2018-01-28 12:25] VITALS: BP 137/73
[2018-01-28 13:28] VITALS: Ht 182.9 cm; Wt 73.0 kg
[2018-01-28 17:41] VITALS: BP 118/64
[2018-01-28 20:39] VITALS: BP 115/55
[2018-01-29 01:13] VITALS: BP 124/64
[2018-01-29 04:45] VITALS: BP 132/63
[2018-01-29 07:43] VITALS: BP 172/83
[2018-01-29 12:28] VITALS: BP 166/78
[2018-01-29 15:49] VITALS: BP 154/77
[2018-01-29 20:53] VITALS: BP 142/72
[2018-01-30 01:38] VITALS: BP 154/74
[2018-01-30 04:56] VITALS: BP 148/74
[2018-01-30 05:28] LABS: BASOPHILS 0 % (0-2); EOSINOPHILS 0.4 % (0-7); HEMATOCRIT 26.1 % (42.0-54.0); HEMOGLOBIN 8.9 g/dL (13.5-17.5); IMMATURE GRANULOCYTES 0.1 % (0-5); LYMPHOCYTES 3.7 % (15-50); MCH 30.9 pg (26.0-34.0); MCHC 34.1 g/dL (31.0-37.0); MCV 90.6 fL (80.0-100.0); MONOCYTES 6.1 % (2-11); NEUTROPHILS 89.7 % (40-80); PLATELET COUNT 138 10x3/uL (130-400); RBC 2.88 10x6/uL (4.20-6.10); RDW 14.4 % (11.5-14.5); WBC 7.4 10x3/uL (4.8-10.8)
[2018-01-30 05:41] LABS: CALC OSMOLALITY 272 mosm/kg (275-300); CALCIUM 8.4 mg/dL (8.5-10.1); CARBON DIOXIDE 26.8 mmol/L (21.0-32.0); CHLORIDE - SERUM 101 mmol/L (98-107); CREATININE - SERUM 0.8 mg/dL (0.6-1.3); GLUCOSE 102 mg/dL (74-106); SODIUM 135 mmol/L (136-145); UREA NITROGEN 20 mg/dL (7-18); eGFR NON AFRICAN AMERICAN > 90 mL/min (90-120)
[2018-01-30 05:48] LABS: POTASSIUM - SERUM 3.5 mmol/L (3.5-5.1)
[2018-01-30 07:51] VITALS: BP 170/87
[2018-01-30 12:10] VITALS: BP 165/83
== END 2018-01-30 15:00 | DRG 329 ==
LOC: D.MS 09:15 → D.SDCHOLD 09:15 → D.MS 16:44 → D.SDCHOLD 01-29 07:25 → D.MS 01-29 07:25
PROVIDERS: Anesthesiology; Surgery
PROC: 0DBN0ZZ Excision of Sigmoid Colon, Open Approach (ICD-10-PCS; 2018-01-27)
PROC: 0DBQ0ZZ Excision of Anus, Open Approach (ICD-10-PCS; 2018-01-27)
PROC: 0D1N0Z4 Bypass Sigmoid Colon to Cutaneous, Open Approach (ICD-10-PCS; 2018-01-27)
PROC: 0WUF07Z Supplement Abdominal Wall with Autologous Tissue Substitute, Open Approach (ICD-10-PCS; 2018-01-27)
PROC: 0DTJ0ZZ Resection of Appendix, Open Approach (ICD-10-PCS; 2018-01-27)
PROC: 0DTP0ZZ Resection of Rectum, Open Approach (ICD-10-PCS; principal; 2018-01-27 11:00)
DX: C21.0 Malignant neoplasm of anus, unspecified (principal); I26.99 Other pulmonary embolism without acute cor pulmonale; F11.20 Opioid dependence, uncomplicated; M10.9 Gout, unspecified; I10 Essential (primary) hypertension; K21.9 Gastro-esophageal reflux disease without esophagitis; F10.21 Alcohol dependence, in remission